=== PATIENT | male | born 1945 | race Hispanic/Latino ===

== ENCOUNTER 2017-06-23 07:28 | Day surgery (SDC) | payer OTHER ==
[~2017-06-23] VITALS: Ht 175.3 cm; Wt 79.8 kg
[~2017-06-23 07:28] MED LIST: GLIP10TA9 PO; SODIUM CHLORIDE 0.9% 1000ML 1,000 ML IV ONE
[2017-06-23 07:50] VITALS: BP 131/68
[2017-06-23] MEDS ORDERED: PRAV20TA4 PO (08:11)
[2017-06-23] MEDS ORDERED: METF500T7 PO (08:11)
[2017-06-23] MEDS ORDERED: PARO10TA71 PO (08:11)
[2017-06-23] MEDS ORDERED: MIDAZOLAM HCL 1 MG/ML 2ML VIAL ONE (09:28)
[2017-06-23] MEDS ORDERED: MEPERIDINE-PF 50 MG/ML SYG ONE (09:28)
[2017-06-23 09:50] VITALS: BP 110/58
== END 2017-06-23 10:32 ==
LOC: DAH 07:28 → ENDO 07:28 → EDBD 10:30 → ENDO 10:32
PROVIDERS: ATTEND Internal Medicine Gastroenterology
DX: Z12.11 Encounter for screening for malignant neoplasm of colon (principal); D12.2 Benign neoplasm of ascending colon; Z68.34 Body mass index [BMI] 34.0-34.9, adult; E78.5 Hyperlipidemia, unspecified; N40.0 Benign prostatic hyperplasia without lower urinary tract symptoms; E11.9 Type 2 diabetes mellitus without complications; Z98.890 Other specified postprocedural states; Z80.0 Family history of malignant neoplasm of digestive organs; Z79.899 Other long term (current) drug therapy
CPT/HCPCS: 45380; 82948 ×2; 88305; A4606; J2175; J2250; J7030; 99152

== ENCOUNTER 2023-12-05 22:03 | Observation (INO) | payer OTHER ==
[~2023-12-05] VITALS: Ht 152.4 cm; Wt 67.9 kg
[~2023-12-05 22:03] MED LIST changes: +ASPI-1197 PO; +LOSA25TA41 PO; +METF-446 PO; +NAPR500T6 PO; +PARO10TA71 PO; +PRAV40TA3 PO; -SODIUM CHLORIDE 0.9% 1000ML 1,000 ML IV ONE; +SOLI5TAB6 PO; +TAMS-1 PO
[2023-12-05] MEDS: ASPIRIN 325MG TAB PO ONE (22:18)
[2023-12-05] MEDS: NITROGLYCERIN 1GM OINT 1 INCH/1GM TD ONE (22:19)
[2023-12-05] MEDS: MORPHINE 4 MG SYG IVP ONE (22:19)
[2023-12-05 22:21] LABS: BASOPHILS # (AUTO) 0.04 K/uL (0.00-0.20); BASOPHILS % (AUTO) 0.4 % (0.0-5.0); EOSINOPHILS # (AUTO) 0.14 K/uL (0.00-0.70); EOSINOPHILS % (AUTO) 1.5 % (0.0-8.0); HEMATOCRIT 39.3 % (42-54); IMMATURE GRANULOCYTE ABSOLUTE 0.02 K/uL (0-1); LYMPHOCYTES # (AUTO) 2.8 K/uL (1.0-4.8); LYMPHOCYTES % (AUTO) 31.1 % (21.0-51.0); MEAN CORPUSCULAR HEMOGLOBIN 32.1 pg (27.0-33.0); MEAN CORPUSCULAR HGB CONC 34.4 g/dL (32.0-36.0); MEAN CORPUSCULAR VOLUME 93.3 fL (79-99); MONOCYTES # (AUTO) 0.9 K/uL (0.1-1.0); MONOCYTES % (AUTO) 9.5 % (3.0-13.0); NEUTROPHILS # (AUTO) 5.2 K/uL (1.8-7.7); NEUTROPHILS % (AUTO) 57.3 % (40.0-77.0); PLATELET COUNT (AUTO) 239 K/uL (130-400); RED BLOOD CELL COUNT(AUTO) 4.21 MIL/uL (4.50-6.20); RED CELL DISTRIBUTION WIDTH 13.4 % (11.0-15.5); WHITE BLOOD COUNT (AUTO) 9.1 K/uL (4.8-10.8)
[2023-12-05 22:45] LABS: CREATININE 0.9 mg/dL (0.5-1.3); POTASSIUM 3.6 mmol/L (3.5-5.1)
[2023-12-05 23:16] LABS: B-TYPE NATRIURETIC PEPTIDE 59 pg/mL (0-100)
[2023-12-06] VITALS (9 sets, daily range): BP systolic 117–134; BP diastolic 50–62; PULSE 20–106; RESP 17–18; O2SAT 97–99
[2023-12-06] MEDS ORDERED: LACTULOSE 20 GM/30 ML UDCUP PO PRN (00:30)
[2023-12-06] MEDS ORDERED: ONDANSETRON 4MG INJ IVP PRN (00:30)
[2023-12-06] MEDS ORDERED: LABETALOL 20MG SYG IV PRN (00:30)
[2023-12-06] MEDS ORDERED: ALBUTEROL 0.083% 2.5 MG/3 ML INH IH PRN (00:30)
[2023-12-06] MEDS: FUROSEMIDE 40MG VIAL IV ONE (00:39)
[2023-12-06 01:18] LABS: INR 1.03 (0.85-1.15); PROTHROMBIN TIME 11.1 SEC (9.6-11.6)
[2023-12-06 01:19] LABS: PARTIAL THROMBOPLASTIN TIME 25.6 SEC (26.3-35.5)
[2023-12-06] MEDS ORDERED: DEXTROSE 50%-WATER 50 ML DISP.SYRIN IV PRN (02:00)
[2023-12-06] MEDS ORDERED: GLUCAGON 1MG KIT 1 MG ML IM PRN (02:00)
[2023-12-06] MEDS ORDERED: POTASSIUM CHLORIDE 10% ELIXIR 20 MEQ/15 ML UDCUP PO PRN (02:00)
[2023-12-06] MEDS: ATORVASTATIN 40 MG TABLET PO SCH (02:30)
[2023-12-06] MEDS: METOPROLOL TARTRATE 25 MG TAB PO ONE (03:47)
[2023-12-06] MEDS: INSULIN HUMULIN R 100 UNIT/ML 3ML SQ SCH (06:00)
[2023-12-06 06:13] LABS: BASOPHILS # (AUTO) 0.03 K/uL (0.00-0.20); BASOPHILS % (AUTO) 0.3 % (0.0-5.0); EOSINOPHILS # (AUTO) 0.04 K/uL (0.00-0.70); EOSINOPHILS % (AUTO) 0.4 % (0.0-8.0); IMMATURE GRANULOCYTE ABSOLUTE 0.03 K/uL (0-1); LYMPHOCYTES # (AUTO) 1.3 K/uL (1.0-4.8); LYMPHOCYTES % (AUTO) 12.6 % (21.0-51.0); MEAN CORPUSCULAR HEMOGLOBIN 32.6 pg (27.0-33.0); MEAN CORPUSCULAR HGB CONC 35.3 g/dL (32.0-36.0); MEAN CORPUSCULAR VOLUME 92.3 fL (79-99); MONOCYTES % (AUTO) 9.8 % (3.0-13.0); NEUTROPHILS # (AUTO) 8.1 K/uL (1.8-7.7); NEUTROPHILS % (AUTO) 76.6 % (40.0-77.0); PLATELET COUNT (AUTO) 207 K/uL (130-400); RED CELL DISTRIBUTION WIDTH 13.5 % (11.0-15.5); WHITE BLOOD COUNT (AUTO) 10.5 K/uL (4.8-10.8)
[2023-12-06 06:39] LABS: CREATININE 0.9 mg/dL (0.5-1.3); POTASSIUM 4.1 mmol/L (3.5-5.1); THYROID STIMULATING HORMONE 0.77 uIU/mL (0.36-3.74)
[2023-12-06] MEDS: PANTOPRAZOLE 40 MG TAB DR PO SCH (08:54)
[2023-12-06] MEDS: METOPROLOL TARTRATE 25 MG TAB PO SCH (08:54)
[2023-12-06] MEDS: FAMOTIDINE 20MG TAB PO SCH (08:54)
[2023-12-06] MEDS: ASPIRIN 81MG CHEW TAB PO SCH (08:55)
[2023-12-06] MEDS: ENOXAPARIN SODIUM 40 MG/0.4 ML SYRINGE SQ SCH (08:57)
[2023-12-06] MEDS ORDERED: CLOP75TA32 PO (09:45)
[2023-12-06] MEDS ORDERED: ATOR40TA71 PO (09:45)
[2023-12-06] MEDS ORDERED: ESCI20TA38 PO (09:45)
[2023-12-06] MEDS ORDERED: METO25 PO (09:45)
[2023-12-06 21:25] LABS: APPEARANCE,URINE CLEAR (CLEAR); BILIRUBIN,URINE NEGATIVE (NEGATIVE); COLOR,URINE YELLOW (YELLOW); GLUCOSE, URINE (UA) 50 mg/dL (NEGATIVE); KETONES,URINE NEGATIVE (NEGATIVE); LEUKOCYTE ESTERASE ,URINE NEGATIVE Leu/uL (NEGATIVE); NITRATE,URINE NEGATIVE (NEGATIVE); OCCULT BLOOD,URINE SMALL (NEGATIVE); PH,URINE 5.5 (5.0-8.0); PROTEIN,URINE NEGATIVE (NEGATIVE); UROBILINOGEN,URINE 0.2 mg/dL (0.2-1.0)
[2023-12-06 21:27] LABS: ADD UA MICROSCOPIC YES
[2023-12-06 21:29] LABS: BACTERIA,URINE FEW /HPF (None Seen); MUCUS,URINE RARE LPF (None Seen); WBC,URINE 0-1 /HPF (0-1)
[2023-12-06] MEDS: ACETAMINOPHEN 325 MG TAB PO PRN (23:29)
[2023-12-07 04:28] VITALS: BP 129/69; PULSE 62; RESP 17
[2023-12-07 05:28] LABS: BASOPHILS # (AUTO) 0.04 K/uL (0.00-0.20); BASOPHILS % (AUTO) 0.4 % (0.0-5.0); EOSINOPHILS # (AUTO) 0.09 K/uL (0.00-0.70); HEMATOCRIT 37.2 % (42-54); IMMATURE GRANULOCYTE ABSOLUTE 0.05 K/uL (0-1); LYMPHOCYTES # (AUTO) 0.8 K/uL (1.0-4.8); LYMPHOCYTES % (AUTO) 8.7 % (21.0-51.0); MEAN CORPUSCULAR HEMOGLOBIN 31.6 pg (27.0-33.0); MEAN CORPUSCULAR HGB CONC 34.9 g/dL (32.0-36.0); MEAN CORPUSCULAR VOLUME 90.5 fL (79-99); MONOCYTES # (AUTO) 1.1 K/uL (0.1-1.0); MONOCYTES % (AUTO) 11.4 % (3.0-13.0); NEUTROPHILS # (AUTO) 7.4 K/uL (1.8-7.7); PLATELET COUNT (AUTO) 193 K/uL (130-400); RED BLOOD CELL COUNT(AUTO) 4.11 MIL/uL (4.50-6.20); RED CELL DISTRIBUTION WIDTH 13.6 % (11.0-15.5); WHITE BLOOD COUNT (AUTO) 9.5 K/uL (4.8-10.8)
[2023-12-07 05:53] LABS: CREATININE 0.9 mg/dL (0.5-1.3); MAGNESIUM 1.6 mg/dL (1.80-2.40); PHOSPHORUS 3.7 mg/dL (2.5-4.9)
[2023-12-07] MEDS: MAGNESIUM 2GM PREMIX 50ML 50 ML IV PRN (06:18)
[2023-12-07 06:34] LABS: HEMOGLOBIN A1C 6.9 % (4.0-6.0)
[2023-12-07 06:54] VITALS: PULSE 66; RESP 18; O2SAT 95
[2023-12-07 08:00] VITALS: BP 124/61; PULSE 63; RESP 17; O2SAT 95
[2023-12-07 12:00] VITALS: BP 114/59; PULSE 58; RESP 18
[2023-12-07] MEDS: REGADENOSON 0.4 MG/5 ML PF SYG IVP SCH (16:20)
[2023-12-07 20:00] VITALS: O2SAT 95
[2023-12-08 00:35] VITALS: BP 114/51; PULSE 51; RESP 18
[2023-12-08 04:00] VITALS: BP 136/52; PULSE 57; RESP 17
[2023-12-08 04:43] LABS: BASOPHILS # (AUTO) 0.04 K/uL (0.00-0.20); BASOPHILS % (AUTO) 0.6 % (0.0-5.0); EOSINOPHILS # (AUTO) 0.31 K/uL (0.00-0.70); EOSINOPHILS % (AUTO) 4.3 % (0.0-8.0); HEMATOCRIT 36.2 % (42-54); IMMATURE GRANULOCYTE ABSOLUTE 0.02 K/uL (0-1); LYMPHOCYTES % (AUTO) 14.4 % (21.0-51.0); MEAN CORPUSCULAR HEMOGLOBIN 31.6 pg (27.0-33.0); MEAN CORPUSCULAR HGB CONC 34.8 g/dL (32.0-36.0); MEAN CORPUSCULAR VOLUME 90.7 fL (79-99); MONOCYTES # (AUTO) 0.8 K/uL (0.1-1.0); MONOCYTES % (AUTO) 11.2 % (3.0-13.0); NEUTROPHILS % (AUTO) 69.2 % (40.0-77.0); PLATELET COUNT (AUTO) 201 K/uL (130-400); RED BLOOD CELL COUNT(AUTO) 3.99 MIL/uL (4.50-6.20); RED CELL DISTRIBUTION WIDTH 13.7 % (11.0-15.5); WHITE BLOOD COUNT (AUTO) 7.2 K/uL (4.8-10.8)
[2023-12-08 05:02] LABS: CREATININE 0.9 mg/dL (0.5-1.3); POTASSIUM 3.4 mmol/L (3.5-5.1)
[2023-12-08] MEDS: KCL 20 MEQ ERTAB PO PRN (05:25)
[2023-12-08 08:00] VITALS: BP 127/82; PULSE 66; RESP 18
[2023-12-08 12:00] VITALS: BP 117/54; PULSE 57; RESP 18
[2023-12-08 16:00] VITALS: BP 122/62; PULSE 56; RESP 18
== END 2023-12-08 18:15 | disposition home or self-care (01) ==
LOC: EDH 22:03 → EDHIP 12-06 00:16 → 4DH 12-06 01:07
PROVIDERS: ADMIT Internal Medicine Pulmonary Disease; ATTEND Internal Medicine Pulmonary Disease
DX: R07.89 Other chest pain (principal); I10 Essential (primary) hypertension; E11.65 Type 2 diabetes mellitus with hyperglycemia; E78.5 Hyperlipidemia, unspecified; I25.10 Atherosclerotic heart disease of native coronary artery without angina pectoris; E75.6 Lipid storage disorder, unspecified; N40.0 Benign prostatic hyperplasia without lower urinary tract symptoms; Z95.1 Presence of aortocoronary bypass graft; Z79.899 Other long term (current) drug therapy; Z98.890 Other specified postprocedural states
CPT/HCPCS: 96375 ×2; 99285; 82550; 84484 ×4; 80048 ×4; 83880 ×2; 85025 ×4; 71045; 93005; 96372 ×3; 84443; 82330; 80061; 85378; 85610; 85730; 82948 ×11; 81001; 36415 ×4; 93306; 96365; 96366; 83036; 83735; 84100; 93017; 78452; J2270; G0378 ×62; J1650 ×3; J1940; J1815 ×3; J3475; J2785; A9500 ×2; 96374

== ENCOUNTER → 2024-07-28 | Outpatient (CLI) | payer OTHER ==
[~2024-07-28] MED LIST changes: +ATOR40TA71 PO; +CLOP75TA32 PO; +ESCI20TA38 PO; +GLIP10TA16 PO; -GLIP10TA9 PO; +METO25 PO; +NAPR-1506 PO; -NAPR500T6 PO
[2024-07-28 12:24] LABS: ALBUMIN 3.8 g/dL (3.5-5.0); BILIRUBIN,TOTAL 0.3 mg/dL (0.2-1.0); CREATININE 0.6 mg/dL (0.5-1.3)
[2024-07-28 12:31] LABS: HEMOGLOBIN A1C 5.9 % (4.0-6.0)
== END | disposition home or self-care (01) ==
LOC: LAB 08:25
PROVIDERS: ATTEND Student in an Organized Health Care Education/Training Program
DX: I25.10 Atherosclerotic heart disease of native coronary artery without angina pectoris (principal); E78.5 Hyperlipidemia, unspecified; Z79.899 Other long term (current) drug therapy
CPT/HCPCS: 36415; 80053; 80061; 83036